=== PATIENT | female | born 1965 | race Asian ===

== ENCOUNTER 2018-03-21 08:46 | Emergency (ER) | payer BC ==
[~2018-03-21] VITALS: Ht 160 cm; Wt 49.9 kg
[2018-03-21 08:54] VITALS: BP 122/75
--- NOTE | 2018-03-21 08:55 | NUR ---
PT TAKEN TO ROOM 9.
--- NOTE | 2018-03-21 09:04 | NUR ---
52 YEAR OLD FEMALE CAME TO THE ED WITH C/O OF A BUG BITE ON HER LEFT THUMB 5 DAYS AGO WHILE AT WORK CLEANING THE [employer]. ON THE FIRST DAY OF THE BUG BITE, IT BEGAN TO ITCH AND SINCE THEN EVERYDAY IT HAS GOTTEN MORE AND MORE PAINFUL, SWOLLEN, ERYTHMATOUS, AND FIRM. PAIN 10/10. UPON ASSESSMENT, PTS SKIN SURROUNDING BITE IS DARK RED, LIGHT RED, WITH PURULENT DISCHARGE. UPON PALPATION SKIN IS HOT TO THE TOUCH AND THE AREA IS FIRM. PT STATES SHE WASHED IT WITH SOAP AFTER IT HAPPENED AND IS UNSURE WHAT TYPE OF BUG BIT HER. PT STATES SHE FEELS LIKE SHE HAD A LOT GRADE FEVER LAST NIGHT AND FEELS FATIGUED. PT HAS NOT TAKEN ANY MEDICATION FOR PAIN OR TO TREAT S/SX. 21S2 HEARD. LUNGS ARE CLEAR BILATERALLY. PT DENIES OTHER MEDICAL AND SURGICAL HX.
[2018-03-21] MEDS ORDERED: methylPREDNISolone SS 125 MG in WATER STERILE 2 ML IM ONE (09:40)
[2018-03-21] MEDS ORDERED: NEOMYCIN/POLYMYXIN/BACITRACIN 0.9 GM/1 PKT TP ONE (09:40)
[2018-03-21] MEDS ORDERED: CLINDAMYCIN 600 MG/4 ML VIAL IM ONE (09:40)
--- NOTE | 2018-03-21 10:15 | NUR ---
wound culture done and taken to lab by ese tucker
--- NOTE | 2018-03-21 10:15 | NUR ---
DOTTY NEWMAN, CLEANING AND DRESSING WOUND AT BEDSIDE. CULTURE TAKEN TO LAB
[2018-03-21 10:57] VITALS: BP 121/70
--- NOTE | 2018-03-21 10:57 | NUR ---
Patient discharged with v/s stable. Written and verbal after care instructions given and explained. Patient alert, oriented and verbalized understanding of instructions. Ambulatory with steady gait. All questions addressed prior to discharge. ID band removed. Patient advised to follow up with PMD. Rx of prednisione, clindamycin given. Patient educated on indication of medication including possible reaction and side effects. Opportunity to ask questions provided and answered.
== END 2018-03-21 10:57 | disposition home or self-care (01) ==
LOC: MED 08:46
DX: S60.362A Insect bite (nonvenomous) of left thumb, initial encounter (principal); L08.9 Local infection of the skin and subcutaneous tissue, unspecified; W57.XXXA Bitten or stung by nonvenomous insect and other nonvenomous arthropods, initial encounter; Y93.89 Activity, other specified; Y92.89 Other specified places as the place of occurrence of the external cause; Y99.8 Other external cause status
CPT/HCPCS: 87070; 87186; 96372; 99284; J2930; J3490

== ENCOUNTER 2019-08-02 16:53 | Emergency (ER) | payer BC ==
[~2019-08-02] VITALS: Ht 149.9 cm; Wt 45.4 kg
[2019-08-02 16:59] VITALS: BP 130/83
--- NOTE | 2019-08-02 17:10 | NUR ---
DR JORGENSEN EVALUATING PT AT BEDSIDE
--- NOTE | 2019-08-02 17:12 | NUR ---
53/F C/O SWELLING AND WATERY EYES X 3 DAYS AND PRURITIC RASH ON FACE/NECK X 1 DAY. PT HAS BEEN SCRATCHING AT NECK. HX OF ALLERGIC SYMPTOMS, TAKING HOME MED LORATADINE. DENIES SOB, DENIES N/V/D. ERYTHEMATOUS PAPULES NOTED ON FACE/NECK. HX- HLD, ALLERGIES
[2019-08-02] MEDS ORDERED: predniSONE 20 MG TAB PO ONE (17:15)
--- NOTE | 2019-08-02 18:12 | NUR ---
Patient discharged with v/s stable. Written and verbal after care instructions given and explained. Patient alert, oriented and verbalized understanding of instructions. Ambulatory with steady gait. All questions addressed prior to discharge. ID band removed. Patient advised to follow up with PMD. Rx of Benadryl and Prednisone given. Patient educated on indication of medication including possible reaction and side effects. Opportunity to ask questions provided and answered.
[2019-08-02 18:13] VITALS: BP 130/83
== END 2019-08-02 18:12 | disposition home or self-care (01) ==
LOC: MED 16:53
DX: T78.40XA Allergy, unspecified, initial encounter (principal); R21 Rash and other nonspecific skin eruption; E78.5 Hyperlipidemia, unspecified; X58.XXXA Exposure to other specified factors, initial encounter
CPT/HCPCS: 99283; J7512